=== PATIENT | female | born 1960 | race Caucasian/White ===

== ENCOUNTER 2017-07-30 02:32 | Inpatient (IN) | payer OTHER ==
[~2017-07-30] VITALS: Ht 175.3 cm; Wt 92.9 kg
[~2017-07-30 02:32] MED LIST: ATEN-60; BENA20TA14; LORA-653
[2017-07-30] MEDS ORDERED: CLOPIDOGREL BISULFATE 75 MG TAB ONE (03:09)
[2017-07-30] MEDS ORDERED: CLOPIDOGREL BISULFATE 75 MG TAB PO ONE (03:15)
[2017-07-30] MEDS ORDERED: ASPirin 325 MG TAB PO ONE (03:15)
[2017-07-30 03:25] LABS: Basophils # (auto) 0.1 uL; Basophils % (auto) 1.1 % (0.0-2.0); Eosinophils # (auto) 0.4 uL; Eosinophils % (auto) 3.8 % (0.0-7.0); Hematocrit 40.2 % (36.0-46.0); Hemoglobin 13.4 g/dL (12.2-16.2); Lymphocytes # (auto) 2.2 uL; Lymphocytes % (auto) 23.3 % (10.0-50.0); Mean Corpuscular Hemoglobin 28.1 pg (28.0-32.0); Mean Corpuscular Hgb Conc. 33.2 g/dL (32.0-36.0); Mean Corpuscular Volume 84.7 fL (80.0-100.0); Monocytes # (auto) 0.6 uL; Monocytes % (auto) 6.6 % (0.0-12.0); Neutrophils # (auto) 6.3 uL; Neutrophils % (auto) 65.2 % (37.0-80.0); Nucleated Red Blood Cells % 0.1 %; Platelet Count (auto) 367 10^3/uL (140-450); Red Blood Cells 4.74 10^6/uL (4.0-5.20); Red Cell Distribution Width 14.1 % (11.8-14.3); White Blood Cell 9.6 10^3/uL (4.4-10.8)
[2017-07-30 03:42] LABS: INR 0.92 (0.9-1.15)
[2017-07-30 03:44] LABS: Alanine Aminotransferase 23 U/L (13-56); Albumin 3.4 g/dL (3.4-5.0); Anion Gap 8 (5-15); Aspartate Aminotransferase 13 U/L (15-37); BUN/Creatinine Ratio 13.2; Blood Urea Nitrogen 14 mg/dL (7-18); Calcium 8.8 mg/dL (8.5-10.1); Carbon Dioxide 29 mmol/L (21-32); Chloride 104 mmol/L (98-107); GFR African American 68 mL/min; GFR Non-African American 56 mL/min; Glucose 122 mg/dL (74-106); Potassium 3.6 mmol/L (3.5-5.1); Sodium 141 mmol/L (136-145)
[2017-07-30 03:49] LABS: Alkaline Phosphatase 101 U/L (45-117); Bilirubin, Total 0.4 mg/dL (0.2-1.0); Total Protein 7.1 g/dL (6.4-8.2)
[2017-07-30] MEDS ORDERED: ASPirin-EC 81 mg tab PO ONE (09:45)
[2017-07-30] MEDS ORDERED: MORPHINE SULFATE 4 MG/ML SYR/VIAL IV PRN (10:30)
[2017-07-30] MEDS ORDERED: NITROGLYCERIN 0.4 MG SL TAB SL PRN (10:30)
[2017-07-30 11:00] LABS: Cholesterol 178 mg/dL (< 200); HDL Cholesterol 46 mg/dL (40-59); LDL Cholesterol 120 mg/dL (< 100); Triglycerides 151 mg/dL (< 150)
[2017-07-30] MEDS ORDERED: LORazepam 2MG/ML-1ML VIAL IV ONE (14:00)
[2017-07-30 14:29] LABS: Urine Bacteria FEW /hpf (None Seen); Urine Blood Negative /uL (Negative); Urine Specific Gravity 1.009 (1.001-1.035); Urine WBC 11 /hpf (0 - 5)
[2017-07-30] MEDS ORDERED: hydrALAZINE HCL 20 MG/ML VL IV PRN (17:00)
[2017-07-30 21:00] VITALS: BP 163/88
[2017-07-31 05:18] VITALS: BP 143/86
[2017-07-31] MEDS ORDERED: ACETAMINOPHEN 325 MG TAB PO ONE (06:15)
[2017-07-31 06:26] LABS: Basophils # (auto) 0.1 uL; Basophils % (auto) 0.9 % (0.0-2.0); Eosinophils # (auto) 0.3 uL; Eosinophils % (auto) 3.9 % (0.0-7.0); Hematocrit 41.4 % (36.0-46.0); Lymphocytes # (auto) 1.5 uL; Mean Corpuscular Hemoglobin 28.7 pg (28.0-32.0); Mean Corpuscular Hgb Conc. 33.7 g/dL (32.0-36.0); Mean Corpuscular Volume 85.1 fL (80.0-100.0); Monocytes # (auto) 0.4 uL; Monocytes % (auto) 5.8 % (0.0-12.0); Neutrophils % (auto) 68.4 % (37.0-80.0); Platelet Count (auto) 370 10^3/uL (140-450); Red Blood Cells 4.86 10^6/uL (4.0-5.20); Red Cell Distribution Width 13.8 % (11.8-14.3); White Blood Cell 7.3 10^3/uL (4.4-10.8)
[2017-07-31 06:34] LABS: BUN/Creatinine Ratio 15.9; Calcium 8.9 mg/dL (8.5-10.1); Potassium 3.5 mmol/L (3.5-5.1)
[2017-07-31 07:52] VITALS: BP 162/89
[2017-07-31] MEDS ORDERED: ATORVASTATIN 20 MG TAB PO ONE (10:00)
[2017-07-31] MEDS ORDERED: ENOXAPARIN SOD 40 MG/0.4 ML SYRINGE SC SCH (10:00)
[2017-07-31] MEDS ORDERED: ASPirin-EC 81 mg tab PO SCH (10:00)
[2017-07-31 12:32] VITALS: BP 162/89
[2017-07-31 13:23] VITALS: BP 163/86
== END 2017-07-31 15:25 | disposition home or self-care (01) | DRG 66 ==
LOC: ER 02:34 → TELE 02:35 → TELE-WESTW 17:20
PROVIDERS: ADMIT Internal Medicine; ATTEND Internal Medicine
DX: I63.9 Cerebral infarction, unspecified (principal); E78.5 Hyperlipidemia, unspecified; F41.9 Anxiety disorder, unspecified; I10 Essential (primary) hypertension; R47.81 Slurred speech; J45.909 Unspecified asthma, uncomplicated; Z82.49 Family history of ischemic heart disease and other diseases of the circulatory system; Z83.3 Family history of diabetes mellitus; Z90.710 Acquired absence of both cervix and uterus
CPT/HCPCS: 36415; 70450; 70551; 71045; 80048; 80053; 80061; 81001; 82962; 83880; 84484; 85025; 85610; 85730; 93005; 93306; 93886; 97163